=== PATIENT | female | born 1935 | race Caucasian/White ===

== ENCOUNTER 2016-10-08 08:45 | Day surgery (SDC) | payer OTHER, MEDICARE ==
[2016-10-07 08:47] VITALS: BMI 30.2
[~2016-10-08 08:45] MED LIST: LIDOCAINE HCL 1%, 10 MG/ML (20ML VIAL) IJ ONE
[2016-10-08] MEDS ORDERED: PROPOFOL 20 ML ONE ×2 (09:58)
[2016-10-08] MEDS ORDERED: MIDAZOLAM HCL 2 MG/2 ML SINGLE DOSE VIAL ONE (09:59)
[2016-10-08] MEDS ORDERED: LIDOCAINE HCL 1%, 10 MG/ML (20ML VIAL) ONE (11:15)
[2016-10-08] MEDS ORDERED: GENTAMICIN SO4 80 MG/2 ML VIAL ONE (12:16)
[2016-10-08] MEDS ORDERED: LIDOCAINE HCL 1%, 10 MG/ML (20ML VIAL) INF ONE (12:22)
[2016-10-08] MEDS ORDERED: LIDOCAINE HCL 1%, 10 MG/ML (20ML VIAL) IJ ONE (12:22)
[2016-10-08] MEDS ORDERED: GENTAMICIN SO4 80 MG/2 ML VIAL IVPB ONE (12:28)
[2016-10-08] MEDS ORDERED: oxyCODONE HCL 5 MG TABLET PO PRN (13:04)
[2016-10-08] MEDS ORDERED: PROMETHAZINE HCL 25 MG/1 ML VIAL IVPUSH PRN (13:04)
[2016-10-08] MEDS ORDERED: ONDANSETRON 4 MG/2 ML VIAL IVPUSH PRN (13:04)
[2016-10-08 13:46] VITALS: TEMP 98.2
--- NOTE | 2016-10-08 14:08 | OP ---
Operative Note - Note: Operative Date: 10/08/16 Pre-Operative Diagnosis: urge incontinence Operation: Full Interstim placement Findings: Normal anatomy Implants: Interstim Post-Operative Diagnosis: Same as Pre-op Surgeon: Arjun Wilson MD. Anesthesia: General Estimated Blood Loss (mls): 5 Operative Report Dictated: Yes
[2016-10-08 15:09] VITALS: BP 149/68; PULSE 78
--- NOTE | 2016-10-08 16:56 | OP ---
DATE OF OPERATION: 10/08/2016 PREOPERATIVE DIAGNOSIS: Urge incontinence. POSTOPERATIVE DIAGNOSIS: Urge incontinence. PROCEDURE: Full InterStim placement. SURGEON: Arjun Wilson MD HISTORY: This is a very delightful 81-year-old female with a long history of urge and urine incontinence who failed multiple medical treatments in the form of anticholinergics and Myrbetriq. Urodynamic evaluation was performed. The patient was also known to have a grade II-III cystocele/enterocele. She underwent a previous gynecologic evaluation. She also underwent PNE evaluation as an outpatient and had approximately 70% improvement in her voiding symptoms. Risks, benefits, and alternative treatments, including addressing her anatomic issues prior to the above procedure were discussed. Due to the relatively low morbidity of the above-stated procedure compared to pelvic reconstructive procedures as well as the known fact that the procedure had already worked very well, we agreed to proceed with the above. DESCRIPTION OF PROCEDURE: The patient was brought to the operating room and placed in the prone position. Once sedation was administered, the landmarks were identified and the patient was prepped and draped in the standard sterile fashion. The landmarks were again identified. Approximately 10 mL of lidocaine were administered using the spinal needles, the S3 foramen was identified bilaterally and fluoroscopically confirmed to be in excellent position. Both sides were tested. The right side seemed to have an excellent response, very low, at 0.8. The decision was made to place the stimulating device on the right side. At this time, it was placed in the standard fashion. A tunnel was made to a pocket approximately 3 cm subcutaneously in the superior aspect of the buttocks. The battery was connected to the wire and then placed into the pocket. There was no evidence of active bleeding. The pocket was then closed using 3-0 chromic and 4-0 subcuticular stitch. The puncture site was closed using a simple 4-0 suture. Dry sterile occlusive dressings were applied. The patient was then brought to the recovery room in stable and satisfactory condition. ARJUN WILSON M.D. REGINE/[id number]
[2016-10-08] MEDS ORDERED: PATIENT'S OWN MEDICATION (NON-FORMULARY) (Pravastatin Sodium [Pravastatin Sodium] 20 MG) PO SCH (22:00)
[2016-10-08] MEDS ORDERED: PATIENT'S OWN MEDICATION (NON-FORMULARY) (Mirabegron [Myrbetriq] 25 MG) PO SCH (22:00)
[2016-10-09] MEDS ORDERED: PATIENT'S OWN MEDICATION (NON-FORMULARY) (Omega-3 Fatty Acids [Omega-3] 1,000 MG) PO SCH (10:00)
[2016-10-09] MEDS ORDERED: PATIENT'S OWN MEDICATION (NON-FORMULARY) (Vit A/Vit C/Vit E/Zinc/Copper [Preservision Ared PO SCH (10:00)
[2016-10-09] MEDS ORDERED: CYANOCOBALAMIN 1,000 MCG TABLET (FP) PO SCH (10:00)
[2016-10-09] MEDS ORDERED: VITAMIN D3 PO SCH (10:00)
[2016-10-09] MEDS ORDERED: ASPIRIN 81 MG CHEWABLE TABLETS PO SCH (10:00)
[2016-10-09] MEDS ORDERED: CRANBERRY FRUIT 450 MG PO SCH (10:00)
[2016-10-09] MEDS ORDERED: CALCIUM CITRATE PO SCH (10:00)
[2016-10-09] MEDS ORDERED: LISINOPRIL 20 MG TABLET (FP) PO SCH (10:00)
[2016-10-09] MEDS ORDERED: [UNRECOGNIZED DRUG - OTHER] PO SCH (10:00)
== END 2016-10-08 15:09 | disposition home or self-care (01) ==
LOC: JASU-SURG 08:45
PROVIDERS: ATTEND Urology
PROC: 01HY0MZ Insertion of Neurostimulator Lead into Peripheral Nerve, Open Approach (ICD-10-PCS; 2016-10-08)
PROC: 0JH70BZ Insertion of Single Array Stimulator Generator into Back Subcutaneous Tissue and Fascia, Open Approach (ICD-10-PCS; principal; 2016-10-08 10:00)
DX: N39.41 Urge incontinence (principal)
CPT/HCPCS: 64581; 64590; C1767; C1778; 76000-TC; 94760